=== PATIENT | female | born 1975 | race Two or more races ===

== ENCOUNTER 2022-01-01 19:12 | Inpatient (IN) | payer OTHER ==
[~2022-01-01] VITALS: Ht 157.5 cm; Wt 49.9 kg
[~2022-01-01 19:12] MED LIST: BACLOFEN10 MG PO; PEPCID AC20 MG PO; RESTORIL30 M1 PO; ZOLOFT50 MG PO
== END 2022-01-09 17:35 | disposition home or self-care (01) | DRG 759 ==
LOC: ER 19:12 → SEC-K 01-02 10:39 → OB/GYN 01-02 11:54
PROVIDERS: ADMIT Specialist; ATTEND Specialist
PROC: BW21ZZZ Computerized Tomography (CT Scan) of Abdomen and Pelvis (ICD-10-PCS; principal; 2022-01-01)
DX: N73.8 Other specified female pelvic inflammatory diseases (principal); Z74.01 Bed confinement status; Z20.822 Contact with and (suspected) exposure to COVID-19